=== PATIENT | female | born 1970 | race Caucasian/White ===

== ENCOUNTER 2017-10-05 10:39 | Day surgery (SDC) | payer OTHER ==
[2017-09-30 13:16] VITALS: BP 127/77
[~2017-10-05] VITALS: Ht 165.1 cm; Wt 75.9 kg
[~2017-10-05 10:39] MED LIST: ASPI1TAB31 PO; CETI10TA24 PO; CHOL200074 PO; LISI-170 PO; MULT-717 PO; MV-M1TAB29 PO; OMEG-14 PO
[2017-10-05] MEDS ORDERED: LACTATED RINGERS 1,000 ML IV SCH (12:00)
[2017-10-05 12:03] LABS: HCG UR SG 1.012 (1.003-1.030)
[2017-10-05] MEDS ORDERED: FENTANYL PF 100 MCG/2ML ONE ×2 (13:34→13:42)
[2017-10-05] MEDS ORDERED: PROPOFOL 10 MG/ML, 20ML ONE ×2 (13:35→13:42)
[2017-10-05] MEDS ORDERED: MIDAZOLAM 1 MG/ML, 2ML ONE ×4 (13:35→16:49)
[2017-10-05] MEDS ORDERED: LIDOCAINE-MPF 2% ,5ML ONE (13:35)
[2017-10-05] MEDS ORDERED: HYDROmorphone 2 MG/ML, 1ML ONE (13:42)
[2017-10-05] MEDS ORDERED: ONDANSETRON 2MG/ML, 2ML ONE ×3 (13:42→13:53)
[2017-10-05] MEDS ORDERED: DEXAMETHASONE 4 MG/ML, 1ML ONE ×4 (13:42→15:31)
[2017-10-05] MEDS ORDERED: KETAMINE 10 MG/ML, 20ML ONE (13:42)
[2017-10-05] MEDS ORDERED: KETOROLAC 30 MG/1 ML ONE ×2 (13:42→13:52)
[2017-10-05] MEDS ORDERED: HYDROmorphone 1 MG/ML, 1ML ONE (14:12)
[2017-10-05] MEDS ORDERED: THROMBIN 5,000 UNIT VIAL TP ONE (14:13)
[2017-10-05] MEDS ORDERED: ONDANSETRON 2MG/ML, 2ML IVPush PRN (14:30)
[2017-10-05] MEDS ORDERED: LORazepam 2 MG/ML, 1ML IVPush PRN (14:30)
[2017-10-05] MEDS ORDERED: LABETALOL 5MG/ML, 20ML IV PRN (14:30)
[2017-10-05] MEDS ORDERED: ALBUTEROL SULFATE 2.5 MG/3 ML NPPB PRN (14:30)
[2017-10-05] MEDS ORDERED: OXYcodone 5 MG/5 ML ORAL.SOL UDC PO PRN (14:30)
[2017-10-05] MEDS ORDERED: hydrALAzine 20 MG/ML, 1ML IV PRN (14:30)
[2017-10-05] MEDS ORDERED: FENTANYL PF 100 MCG/2ML IV PRN (14:30)
[2017-10-05] MEDS ORDERED: HYDROmorphone 1 MG/ML, 1ML IV PRN (14:30)
[2017-10-05] MEDS ORDERED: PROMETHAZINE 25 MG/ML, 1ML IV PRN (14:30)
[2017-10-05] MEDS ORDERED: ACETAMINOPHEN 325 MG TABLET PO PRN (14:30)
[2017-10-05] MEDS ORDERED: MEPERIDINE/PF 25MG/0.5ML IVPush PRN (14:30)
[2017-10-05] MEDS ORDERED: OXYcodone 5 MG/5 ML ORAL.SOL UDC ONE (14:44)
[2017-10-05] MEDS ORDERED: ACETAMINOPHEN 650 MG/20.3 ML UDC ONE (14:44)
== END 2017-10-05 17:05 | disposition home or self-care (01) ==
LOC: OUT 10:39
PROVIDERS: ATTEND Specialist
DX: N87.1 Moderate cervical dysplasia (principal); N84.0 Polyp of corpus uteri; I10 Essential (primary) hypertension; F41.9 Anxiety disorder, unspecified; Z79.899 Other long term (current) drug therapy; F32.9 Major depressive disorder, single episode, unspecified; Z85.71 Personal history of Hodgkin lymphoma; Z72.89 Other problems related to lifestyle; F17.210 Nicotine dependence, cigarettes, uncomplicated; Z82.49 Family history of ischemic heart disease and other diseases of the circulatory system
CPT/HCPCS: 57522; 81025; 88305; J1100; J1170; J1885; J2250; J2405; J2704; J3010; J3490; J7120

== ENCOUNTER → 2017-11-19 | Outpatient (CLI) | payer OTHER ==
[~2017-11-19] MED LIST changes: +ALBU8.5H8 INH; +MULT-224 PO
[2017-11-19 08:35] LABS: BASOPHILS # (AUTO) 0.07 x10^3/uL (0-0.1); BASOPHILS % (AUTO) 1 % (0-1); EOSINOPHILS # (AUTO) 0.37 x10^3/uL (0-0.4); EOSINOPHILS % (AUTO) 3 % (1-7); LYMPHOCYTES # (AUTO) 2.11 x10^3/uL (1-3.4); LYMPHOCYTES % (AUTO) 18 % (22-44); MD NO; MEAN CORPUSCULAR HEMOGLOBIN 29.7 pg (27.0-34.8); MEAN CORPUSCULAR HGB CONC 33.4 g/dL (32.4-35.8); MEAN CORPUSCULAR VOLUME 89.1 fL (80-100); MEAN PLATELET VOLUME 8.4 fL (7.4-10.4); MONOCYTES # (AUTO) 0.94 x10^3/uL (0.2-0.8); MONOCYTES % (AUTO) 8 % (2-9); NEUTROPHILS # (AUTO) 8.11 x10^3/uL (1.8-6.8); NEUTROPHILS % (AUTO) 70 % (42-75); PLATELET COUNT 383 x10^3/uL (130-400); RED BLOOD COUNT 4.86 x10^6/uL (3.82-5.3); RED CELL DISTRIBUTION WIDTH 14.4 % (9.6-15.2)
[2017-11-19 08:41] LABS: INTERNATIONAL NORMALIZED RATIO 0.92 (0.93-1.1); PROTHROMBIN TIME 9.6 Seconds (9.6-11.5)
[2017-11-19 08:46] LABS: ALBUMIN 3.9 g/dL (3.4-5.0); ANION GAP 9 mmol/L (5-15); CALCIUM 9.3 mg/dL (8.5-10.1); CHLORIDE 105 mmol/L (98-107)
[2017-11-19 08:51] LABS: ALANINE AMINOTRANSFERASE 40 U/L (12-78); ALKALINE PHOSPHATASE 96 U/L (45-117); BILIRUBIN,TOTAL 0.4 mg/dL (0.2-1.0); CREATININE 0.69 mg/dL (0.55-1.02); TOTAL PROTEIN 7.6 g/dL (6.4-8.2)
== END | disposition home or self-care (01) ==
LOC: STAR 07:29
PROVIDERS: ATTEND Specialist
DX: N93.8 Other specified abnormal uterine and vaginal bleeding (principal); N87.9 Dysplasia of cervix uteri, unspecified
CPT/HCPCS: 36415; 80053; 84703; 85025; 85610; 85730

== ENCOUNTER 2017-11-23 06:59 | Day surgery (SDC) | payer OTHER ==
[~2017-11-23] VITALS: Ht 165.1 cm; Wt 75.1 kg
[~2017-11-23 06:59] MED LIST changes: +BUPIVACAINE/PF 0.25% ONE; +EPINEPHRINE 1 MG/ML, 1ML ONE; +HEPARIN 1,000 UNITS/ML, 10ML ONE; +INDOCYANINE GREEN 25 MG VIAL ONE
[2017-11-23 07:41] VITALS: BP 157/71
[2017-11-23] MEDS ORDERED: LACTATED RINGERS 1,000 ML IV SCH (07:47)
[2017-11-23 08:17] LABS: HCG UR SG 1.024 (1.003-1.030)
[2017-11-23] MEDS ORDERED: FENTANYL PF 250 MCG/5ML ONE (08:42)
[2017-11-23] MEDS ORDERED: MIDAZOLAM 1 MG/ML, 2ML ONE (08:42)
[2017-11-23] MEDS ORDERED: PNEUMOCOCCAL 23 VACCINE IM-VACC ONE (09:00)
[2017-11-23] MEDS ORDERED: KETOROLAC 30 MG/1 ML ONE (09:30)
[2017-11-23] MEDS ORDERED: NEOSTIGMINE 1 MG/ML, 10ML ONE (10:34)
[2017-11-23] MEDS ORDERED: ROCURONIUM 10 MG/ML,10ML ONE (10:34)
[2017-11-23] MEDS ORDERED: SUCCINYLCHOLINE 20 MG/ML, 10ML ONE (10:34)
[2017-11-23] MEDS ORDERED: CEFAZOLIN 1,000 MG ONE (10:34)
[2017-11-23] MEDS ORDERED: PROPOFOL 10 MG/ML, 20ML ONE (10:34)
[2017-11-23] MEDS ORDERED: GLYCOPYRROLATE 0.2MG/1ML, 5ML ONE (10:34)
[2017-11-23] MEDS ORDERED: ONDANSETRON 2MG/ML, 2ML ONE (10:34)
[2017-11-23] MEDS ORDERED: DEXAMETHASONE 4 MG/ML, 1ML ONE (10:34)
[2017-11-23] MEDS ORDERED: ALBUTEROL SULFATE 2.5 MG/3 ML ONE (11:15)
[2017-11-23] MEDS ORDERED: ACETAMINOPHEN 650 MG/20.3 ML UDC ONE (11:27)
[2017-11-23] MEDS ORDERED: OXYcodone 5 MG/5 ML ORAL.SOL UDC ONE (11:27)
[2017-11-23] MEDS ORDERED: FENTANYL PF 100 MCG/2ML ONE (11:27)
[2017-11-23] MEDS ORDERED: EPHEDRINE 50 MG/ML, 1ML IVPush PRN (11:30)
[2017-11-23] MEDS ORDERED: MIDAZOLAM 1 MG/ML, 2ML IV PRN (11:30)
[2017-11-23] MEDS ORDERED: ALBUTEROL/IPRATROPIUM 2.5MG/0.5MG, 3 ML NPPB PRN (11:30)
[2017-11-23] MEDS ORDERED: OXYcodone 5 MG/5 ML ORAL.SOL UDC PO PRN (11:30)
[2017-11-23] MEDS ORDERED: LABETALOL 5MG/ML, 20ML IV PRN (11:30)
[2017-11-23] MEDS ORDERED: MEPERIDINE/PF 25MG/0.5ML IVPush PRN (11:30)
[2017-11-23] MEDS ORDERED: HYDROcodone/APAP 7.5-325MG/15ML UDC PO PRN (11:30)
[2017-11-23] MEDS ORDERED: ALBUTEROL SULFATE 2.5 MG/3 ML NPPB PRN (11:30)
[2017-11-23] MEDS ORDERED: HYDROmorphone 1 MG/ML, 1ML IV PRN (11:30)
[2017-11-23] MEDS ORDERED: ACETAMINOPHEN 325 MG TABLET PO PRN (11:30)
[2017-11-23] MEDS ORDERED: PROMETHAZINE 25 MG/ML, 1ML IV PRN (11:30)
[2017-11-23] MEDS ORDERED: hydrALAzine 20 MG/ML, 1ML IV PRN (11:30)
[2017-11-23] MEDS ORDERED: METOPROLOL 1 MG/ML, 5ML IV PRN (11:30)
[2017-11-23] MEDS ORDERED: ONDANSETRON 2MG/ML, 2ML IVPush PRN (11:30)
[2017-11-23] MEDS ORDERED: DIAZEPAM 5 MG/ML, 2ML IVPush PRN (11:30)
[2017-11-23] MEDS: FENTANYL PF 100 MCG/2ML IV PRN ×2 (11:32→11:40)
== END 2017-11-23 15:20 | disposition home or self-care (01) ==
LOC: OUT 06:59
PROVIDERS: ATTEND Specialist
DX: R87.613 High grade squamous intraepithelial lesion on cytologic smear of cervix (HGSIL) (principal); D25.9 Leiomyoma of uterus, unspecified; N80.0 Endometriosis of uterus; N83.8 Other noninflammatory disorders of ovary, fallopian tube and broad ligament; I10 Essential (primary) hypertension; J45.909 Unspecified asthma, uncomplicated; Z85.71 Personal history of Hodgkin lymphoma; F41.9 Anxiety disorder, unspecified; F32.9 Major depressive disorder, single episode, unspecified; F17.200 Nicotine dependence, unspecified, uncomplicated; Z72.89 Other problems related to lifestyle
CPT/HCPCS: 36415; 58552; 81025; 86850; 86900; 86923; 88307; 94640; J0171; J0330; J0690; J1100; J1644; J1885; J2250; J2405; J2704; J2710; J3010; J3490; J7120; S2900

== ENCOUNTER → 2018-08-31 | Outpatient (CLI) | payer OTHER ==
[~2018-08-31] MED LIST changes: -BUPIVACAINE/PF 0.25% ONE; -EPINEPHRINE 1 MG/ML, 1ML ONE; -HEPARIN 1,000 UNITS/ML, 10ML ONE; -INDOCYANINE GREEN 25 MG VIAL ONE
== END | disposition home or self-care (01) ==
LOC: CFH 08:44
PROVIDERS: ATTEND Internal Medicine Cardiovascular Disease
DX: I05.0 Rheumatic mitral stenosis (principal); I35.1 Nonrheumatic aortic (valve) insufficiency; F17.210 Nicotine dependence, cigarettes, uncomplicated; I10 Essential (primary) hypertension; C81.90 Hodgkin lymphoma, unspecified, unspecified site; E78.5 Hyperlipidemia, unspecified
CPT/HCPCS: 93306

== ENCOUNTER 2018-10-29 08:52 | Day surgery (SDC) | payer MEDICAID ==
[~2018-10-29] VITALS: Ht 165.1 cm; Wt 82.0 kg
[2018-10-29] MEDS ORDERED: SODIUM CHLORIDE 0.9% 1,000 ML IV ONE (09:30)
[2018-10-29 09:33] VITALS: BP 129/69
[2018-10-29] MEDS ORDERED: LOSA50TA7 PO (09:42)
[2018-10-29] MEDS ORDERED: PLEASE ENTER HEIGHT AND WEIGHT MC SCH (10:00)
[2018-10-29] MEDS ORDERED: PROPOFOL 10 MG/ML, 20ML ONE (14:51)
== END 2018-10-29 13:47 | disposition home or self-care (01) ==
LOC: CACL 08:52
PROVIDERS: ATTEND Internal Medicine Cardiovascular Disease
DX: I05.2 Rheumatic mitral stenosis with insufficiency (principal); I36.1 Nonrheumatic tricuspid (valve) insufficiency; E78.5 Hyperlipidemia, unspecified; Z87.891 Personal history of nicotine dependence
CPT/HCPCS: 93312; 93321; 93325; J2704

== ENCOUNTER 2018-11-19 07:36 | Day surgery (SDC) | payer MEDICAID ==
[~2018-11-19] VITALS: Ht 165.1 cm; Wt 75.0 kg
[~2018-11-19 07:36] MED LIST changes: +LOSA50TA14 PO; -MULT-224 PO; +MULT-642 PO
[2018-11-19] MEDS ORDERED: SODIUM CHLORIDE 0.9% 1,000 ML IV SCH (08:12)
[2018-11-19 08:17] VITALS: BP 140/86
[2018-11-19] MEDS ORDERED: PLEASE ENTER HEIGHT AND WEIGHT MC SCH (08:30)
[2018-11-19] MEDS ORDERED: LISI-170 PO (08:32)
[2018-11-19] MEDS ORDERED: VARE1TAB21 PO (08:32)
[2018-11-19] MEDS ORDERED: MULT-709 PO (08:32)
[2018-11-19] MEDS ORDERED: FENTANYL PF 100 MCG/2ML ONE (09:17)
[2018-11-19] MEDS ORDERED: HEPARIN 1,000 UNITS/ML, 10ML ONE (09:17)
[2018-11-19] MEDS ORDERED: NITROGLYCERIN 5 MG/ML, 10ML ONE (09:17)
[2018-11-19] MEDS ORDERED: MIDAZOLAM 1 MG/ML, 2ML ONE (09:17)
[2018-11-19] MEDS ORDERED: VERAPAMIL 2.5 MG/ML, 2ML ONE (09:17)
[2018-11-19] MEDS ORDERED: LIDOCAINE-MPF 1%, 5ML ONE (09:18)
== END 2018-11-19 12:30 | disposition home or self-care (01) ==
LOC: CACL 07:36
PROVIDERS: ATTEND Internal Medicine Cardiovascular Disease
DX: I25.10 Atherosclerotic heart disease of native coronary artery without angina pectoris (principal); I27.20 Pulmonary hypertension, unspecified; I10 Essential (primary) hypertension; I34.2 Nonrheumatic mitral (valve) stenosis; Z72.0 Tobacco use; Z90.710 Acquired absence of both cervix and uterus
CPT/HCPCS: 93460; 99156; 99157; C1769; C1894; J1644; J2250; J3010; J7030; Q9967

== ENCOUNTER 2019-01-26 04:15 | Inpatient (IN) | payer MEDICAID ==
[2019-01-25 13:42] LABS: CULTURE INDICATED? NO; MICROSCOPIC NOT IND
[2019-01-25 13:47] LABS: BASOPHILS # (AUTO) 0.05 x10^3/uL (0-0.1); BASOPHILS % (AUTO) 1 % (0-1); EOSINOPHILS # (AUTO) 0.23 x10^3/uL (0-0.4); EOSINOPHILS % (AUTO) 3 % (1-7); LYMPHOCYTES # (AUTO) 1.34 x10^3/uL (1-3.4); LYMPHOCYTES % (AUTO) 18 % (22-44); MD NO; MEAN CORPUSCULAR HEMOGLOBIN 31.1 pg (27.0-34.8); MEAN CORPUSCULAR HGB CONC 34.3 g/dL (32.4-35.8); MEAN CORPUSCULAR VOLUME 90.7 fL (80-100); MEAN PLATELET VOLUME 8.2 fL (7.4-10.4); MONOCYTES # (AUTO) 0.97 x10^3/uL (0.2-0.8); MONOCYTES % (AUTO) 13 % (2-9); NEUTROPHILS # (AUTO) 4.93 x10^3/uL (1.8-6.8); NEUTROPHILS % (AUTO) 66 % (42-75); PLATELET COUNT 380 x10^3/uL (130-400); RED BLOOD COUNT 4.72 x10^6/uL (3.82-5.3); RED CELL DISTRIBUTION WIDTH 14.6 % (9.6-15.2)
[2019-01-25 13:53] LABS: INTERNATIONAL NORMALIZED RATIO 0.93 (0.93-1.1); PROTHROMBIN TIME 9.8 Seconds (9.6-11.5)
[2019-01-25 13:55] LABS: ALANINE AMINOTRANSFERASE 37 U/L (12-78); ALBUMIN 3.9 g/dL (3.4-5.0); ANION GAP 7 mmol/L (5-15); CALCIUM 9.2 mg/dL (8.5-10.1); CHLORIDE 104 mmol/L (98-107); CREATININE 0.72 mg/dL (0.55-1.02)
[2019-01-25 13:58] LABS: ALKALINE PHOSPHATASE 97 U/L (45-117); BILIRUBIN,TOTAL 0.4 mg/dL (0.2-1.0); TOTAL PROTEIN 7.5 g/dL (6.4-8.2)
[~2019-01-26] VITALS: Ht 167.6 cm; Wt 81.3 kg
[~2019-01-26 04:15] MED LIST changes: +AMLO-150 PO; +DIPH25TA PO; +DULO20CA45 PO; +MULT-709 PO; +VARE1TAB21 PO
[2019-01-26 04:50] VITALS: BP_SYST 120; BP_SYST 128; BP_DIAS 72; BP_DIAS 78
[2019-01-26] MEDS ORDERED: INSULIN LISPRO 100 UNITS/ML, PEN SQ-INSULIN SCH (05:00)
[2019-01-26] MEDS ORDERED: ALBUMIN HUMAN 5% 500 ML IV PRN (05:00)
[2019-01-26] MEDS ORDERED: CHLORHEXIDINE 15 ML UDC MM SCH (05:00)
[2019-01-26] MEDS ORDERED: MIDAZOLAM 10MG/2 ML ONE (06:48)
[2019-01-26] MEDS ORDERED: PROPOFOL 10 MG/ML, 20ML ONE (06:49)
[2019-01-26] MEDS ORDERED: FENTANYL PF 250 MCG/5ML ONE ×4 (06:49)
[2019-01-26] MEDS ORDERED: AMINOCAPROIC ACID 250 MG/ML, 20ML ONE (06:49)
[2019-01-26] MEDS ORDERED: ROCURONIUM 10MG/ML,5ML ONE (06:50)
[2019-01-26] MEDS ORDERED: EPINEPHRINE 1 MG/ML, 1ML ONE (06:50)
[2019-01-26] MEDS ORDERED: PHENYLEPHRINE 10 MG/ML ONE (06:50)
[2019-01-26] MEDS ORDERED: CALCIUM CHLORIDE 10%, 10ML SYR ONE (06:50)
[2019-01-26] MEDS ORDERED: EPINEPHRINE 2 MG in SODIUM CHLORIDE 0.9% 248 ML IV SCH (07:30)
[2019-01-26] MEDS ORDERED: MANNITOL PMX 20% 500 ML IVPB PRN (07:30)
[2019-01-26] MEDS ORDERED: REGULAR INSULIN 62.5 UNITS in SODIUM CHLORIDE 0.9% 249.375 ML IV PRN ×2 (07:30→11:48)
[2019-01-26] MEDS ORDERED: VANCOMYCIN 1,200 MG in SODIUM CHLORIDE 0.9% 250 ML IV PRN (07:30)
[2019-01-26] MEDS ORDERED: POTASSIUM CHLORIDE 80 MEQ, SODIUM BICARBONATE 8.4% 10 MEQ, MAGNESIUM SULFATE 0.5 GM, LI... IV PRN (07:30)
[2019-01-26] MEDS ORDERED: DEXMEDETOMIDINE 200 MCG in SODIUM CHLORIDE 0.9% 48 ML IV SCH (07:30)
[2019-01-26] MEDS ORDERED: CEFUROXIME 1.5 GM in SODIUM CHLORIDE 0.9% 50 ML IVPB PRN (07:30)
[2019-01-26] MEDS ORDERED: PHENYLEPHRINE 10 MG in SODIUM CHLORIDE 0.9% 249 ML IV PRN ×2 (07:30→11:48)
[2019-01-26] MEDS ORDERED: VASOPRESSIN 20 UNIT/ML, 1ML ONE (08:42)
[2019-01-26] MEDS: DOCUSATE 100 MG CAPSULE PO SCH ×2 (09:00→21:00)
[2019-01-26] MEDS ORDERED: MUPIROCIN OINT 2%, 22GM TP SCH (09:00)
[2019-01-26] MEDS ORDERED: SODIUM CHLORIDE FLUSH 10ML SYR IVF SCH (09:00)
[2019-01-26] MEDS ORDERED: MAGNESIUM SULFATE PMX 2GM/50ML 50 ML ONE (10:58)
[2019-01-26] MEDS ORDERED: SODIUM BICARB 8.4%, 50ML SYRINGE ONE (11:41)
[2019-01-26] MEDS ORDERED: NITROGLYCERIN/D5W PMX 250 ML IV PRN (11:48)
[2019-01-26] MEDS ORDERED: SODIUM CHLORIDE 0.9% 1,000 ML IV PRN (11:48)
[2019-01-26] MEDS ORDERED: DOBUTAMINE 250 MG in SODIUM CHLORIDE 0.9% 230 ML IV PRN (11:48)
[2019-01-26] MEDS ORDERED: DEXTROSE 50%, 50ML SYRINGE IVPush PRN (12:00)
[2019-01-26] MEDS ORDERED: GLUCAGON 1 MG IM PRN (12:00)
[2019-01-26] MEDS ORDERED: DEXTROSE 4 GM TAB.CHEW PO PRN (12:00)
[2019-01-26] MEDS ORDERED: INSULIN REGULAR 100 UNITS/ML, 3ML VIAL IVPush PRN (12:00)
[2019-01-26] MEDS ORDERED: ACETAMINOPHEN 650 MG SUPP PR PRN (12:00)
[2019-01-26] MEDS ORDERED: BISACODYL 5 MG EC TABLET PO PRN (12:00)
[2019-01-26] MEDS ORDERED: PROCHLORPERAZINE 5 MG/ML, 2ML IVPush PRN (12:00)
[2019-01-26] MEDS ORDERED: LACTATED RINGERS 1,000 ML IV PRN (12:00)
[2019-01-26] MEDS ORDERED: SODIUM BICARB 8.4%, 50ML SYRINGE IV PRN (12:00)
[2019-01-26] MEDS ORDERED: BISACODYL 10 MG SUPP PR PRN (12:00)
[2019-01-26] MEDS ORDERED: ACETAMINOPHEN 325 MG TABLET PO PRN (12:00)
[2019-01-26] MEDS ORDERED: EPINEPHRINE 2 MG in SODIUM CHLORIDE 0.9% 248 ML IV PRN (12:00)
[2019-01-26] MEDS ORDERED: methylPREDNISolone SOD SUCC 125 MG/2 ML ONE (12:04)
[2019-01-26] MEDS ORDERED: SODIUM BICARBONATE 1 MEQ/ML, 50ML VIAL ONE (12:04)
[2019-01-26] MEDS ORDERED: LIDOCAINE 2% 100MG/5ML SYRINGE ONE (12:04)
[2019-01-26] MEDS ORDERED: ALBUMIN HUMAN 25% 50 ML ONE (12:04)
[2019-01-26] MEDS ORDERED: HEPARIN 1,000 UNITS/ML, 30ML ONE (12:04)
[2019-01-26 12:16] LABS: GLUCOSE BY BLOOD GAS ANALYZER 187 mg/dL (70-110); HEMOGLOBIN BY BLOOD GAS ANALYZ 11.2 g/dL (14.0-18.0); POTASSIUM BY BLOOD GAS ANALYZR 3.6 mmol/L (3.6-5.5)
[2019-01-26 12:30] LABS: INTERNATIONAL NORMALIZED RATIO 1.33 (0.93-1.1); PROTHROMBIN TIME 13.8 Seconds (9.6-11.5)
[2019-01-26] MEDS: INSULIN LISPRO 100 UNITS/ML, PEN SQ-INSULIN SCH ×2 (13:39→21:00)
[2019-01-26] MEDS: KSCALE TO 4.5 IV SCH ×2 (13:57→18:51)
[2019-01-26] MEDS ORDERED: POTASSIUM CHLORIDE PMX 100 ML IV ONE (14:00)
[2019-01-26] MEDS: ALBUTEROL SULFATE 2.5 MG/3 ML INLINE PRN (14:00)
[2019-01-26] MEDS: VASOPRESSIN 50 UNIT in SODIUM CHLORIDE 0.9% 247.5 ML IV PRN ×2 (14:27→18:38)
[2019-01-26] MEDS: DEXMEDETOMIDINE 200 MCG in SODIUM CHLORIDE 0.9% 48 ML IV PRN ×2 (14:35→20:16)
[2019-01-26] MEDS: MAGNESIUM SULFATE 1 GM in SODIUM CHLORIDE 0.9% 50 ML IVPB SCH (17:14)
[2019-01-26] MEDS ORDERED: MORPHINE SULFATE 4 MG/ML, 1ML ONE (18:44)
[2019-01-26] MEDS: morphine SULFATE 10 MG/ML, 1ML IVPush PRN (18:46)
[2019-01-26] MEDS: FENTANYL PF 100 MCG/2ML IVPush PRN ×2 (19:58→23:57)
[2019-01-26] MEDS: ONDANSETRON 2MG/ML, 2ML IVPush PRN ×2 (19:58→20:02)
[2019-01-26] MEDS: CEFUROXIME 1.5 GM in SODIUM CHLORIDE 0.9% 50 ML IVPB SCH (19:59)
[2019-01-26] MEDS: MUPIROCIN OINT 2%, 22GM NAS SCH (20:01)
[2019-01-26] MEDS: SODIUM CHLORIDE FLUSH 10ML SYR IVF SCH (20:01)
[2019-01-26] MEDS ORDERED: MIDAZOLAM 1 MG/ML, 2ML ONE (21:39)
[2019-01-26] MEDS: VANCOMYCIN 1,200 MG in SODIUM CHLORIDE 0.9% 250 ML IVPB SCH (21:40)
[2019-01-26] MEDS: MIDAZOLAM 1 MG/ML, 5ML IVPush PRN ×2 (21:40→23:57)
[2019-01-27] MEDS ORDERED: CALCIUM CHLORIDE 10%, 10ML SYR ONE (00:57)
[2019-01-27] MEDS ORDERED: ALBUTEROL SULFATE 2.5MG/0.5ML NPPB PRN (01:00)
[2019-01-27] MEDS ORDERED: SODIUM POLYSTYRENE SULFONATE ORAL SUSP PO ONE (01:00)
[2019-01-27] MEDS ORDERED: CALCIUM CHLORIDE 13.6 MEQ in SODIUM CHLORIDE 0.9% 100 ML IV ONE (01:00)
[2019-01-27] MEDS: ALBUTEROL SULFATE 2.5 MG/3 ML INLINE PRN (01:17)
[2019-01-27] MEDS ORDERED: FUROSEMIDE 40 MG/4 ML IV ONE (01:30)
[2019-01-27] MEDS ORDERED: ALBUMIN HUMAN 5%, 25G/500ML IP PRN (01:30)
[2019-01-27] MEDS ORDERED: PROPOFOL 100 ML IV PRN (01:30)
[2019-01-27] MEDS ORDERED: SODIUM CHLORIDE 0.9% 1,000 ML IV SCH (01:30)
[2019-01-27] MEDS ORDERED: SODIUM CHLORIDE 0.9% 1,000 ML IV PRN (02:00)
[2019-01-27] MEDS: INSULIN LISPRO 100 UNITS/ML, PEN SQ-INSULIN SCH ×4 (05:37→19:52)
[2019-01-27 05:49] LABS: MEAN CORPUSCULAR HEMOGLOBIN 30.5 pg (27.0-34.8); MEAN CORPUSCULAR HGB CONC 33.5 g/dL (32.4-35.8); MEAN PLATELET VOLUME 8.7 fL (7.4-10.4); PLATELET COUNT 190 x10^3/uL (130-400); RED BLOOD COUNT 3.72 x10^6/uL (3.82-5.3); RED CELL DISTRIBUTION WIDTH 14.7 % (9.6-15.2)
[2019-01-27 05:57] LABS: ALBUMIN 3.3 g/dL (3.4-5.0); ANION GAP 5 mmol/L (5-15); CALCIUM 8.8 mg/dL (8.5-10.1); CHLORIDE 111 mmol/L (98-107); CREATININE 0.73 mg/dL (0.55-1.02)
[2019-01-27] MEDS: KSCALE TO 4.5 IV SCH ×2 (06:00)
[2019-01-27 06:01] LABS: INTERNATIONAL NORMALIZED RATIO 1.01 (0.93-1.1); PROTHROMBIN TIME 10.6 Seconds (9.6-11.5)
[2019-01-27 06:22] LABS: MD YES
[2019-01-27 06:23] LABS: <RBC MORPHOLOGY> NORMAL; BAND#(MANUAL) 1.09 x10^3/uL; BANDS%(MANUAL) 6 % (0-7); LYMPH#(MANUAL) 0.55 x10^3/uL (1-3.4); LYMPHS% (MANUAL) 3 % (22-44); MONOS#(MANUAL) 1.09 x10^3/uL (0.3-2.7); MONOS% (MANUAL) 6 % (2-9); SEG#(MANUAL) 15.47 x10^3/uL (1.8-6.8); SEGS% (MANUAL) 85 % (42-75)
[2019-01-27 06:24] LABS: <PLATELET ESTIMATE> ADEQUATE; <PLT MORPHOLOGY> NORMAL PLT MORPH
[2019-01-27] MEDS: CEFUROXIME 1.5 GM in SODIUM CHLORIDE 0.9% 50 ML IVPB SCH (08:21)
[2019-01-27] MEDS: VANCOMYCIN 1,200 MG in SODIUM CHLORIDE 0.9% 250 ML IVPB SCH (08:21)
[2019-01-27] MEDS: MUPIROCIN OINT 2%, 22GM NAS SCH ×2 (09:00→20:23)
[2019-01-27] MEDS: ASPIRIN 81 MG TABLET EC PO SCH (09:00)
[2019-01-27] MEDS: WARFARIN BIOPROSTHETIC VALVE PROTOCOL 2-3 XX SCH (09:00)
[2019-01-27] MEDS: DOCUSATE 100 MG CAPSULE PO SCH ×2 (09:00→20:23)
[2019-01-27] MEDS: SODIUM CHLORIDE FLUSH 10ML SYR IVF SCH ×2 (09:00→20:22)
[2019-01-27] MEDS: HYDROcodone/APAP 10/325 MG TABLET PO PRN ×4 (09:53→22:56)
[2019-01-27] MEDS: morphine SULFATE 10 MG/ML, 1ML IVPush PRN (09:53)
[2019-01-27] MEDS ORDERED: WARFARIN 5 MG TABLET PO-COUM ONE (18:00)
[2019-01-27] MEDS: MAGNESIUM SULFATE 1 GM in SODIUM CHLORIDE 0.9% 50 ML IVPB SCH (18:00)
[2019-01-27 19:30] VITALS: BP 112/68
[2019-01-27] MEDS: CHLORHEXIDINE 15 ML UDC MM SCH (20:22)
[2019-01-27] MEDS: OXYcodone IR 5MG TABLET PO PRN (20:23)
[2019-01-28 00:36] VITALS: BP 126/77
[2019-01-28] MEDS: OXYcodone IR 5MG TABLET PO PRN (02:11)
[2019-01-28] MEDS: HYDROcodone/APAP 10/325 MG TABLET PO PRN ×2 (04:24→13:47)
[2019-01-28 05:32] LABS: MEAN CORPUSCULAR HEMOGLOBIN 30.7 pg (27.0-34.8); MEAN CORPUSCULAR HGB CONC 33.5 g/dL (32.4-35.8); MEAN CORPUSCULAR VOLUME 91.5 fL (80-100); MEAN PLATELET VOLUME 8.7 fL (7.4-10.4); PLATELET COUNT 162 x10^3/uL (130-400); RED CELL DISTRIBUTION WIDTH 14.3 % (9.6-15.2)
[2019-01-28 05:40] LABS: INTERNATIONAL NORMALIZED RATIO 0.99 (0.93-1.1); PROTHROMBIN TIME 10.4 Seconds (9.6-11.5)
[2019-01-28 05:47] LABS: ANION GAP 6 mmol/L (5-15); CALCIUM 8.3 mg/dL (8.5-10.1); CHLORIDE 103 mmol/L (98-107)
[2019-01-28 05:48] LABS: CREATININE 0.56 mg/dL (0.55-1.02)
[2019-01-28] MEDS ORDERED: MAGNESIUM HYDROXIDE 8%, 30ML UDC PO PRN (06:00)
[2019-01-28 06:24] LABS: BASOPHILS # (AUTO) 0.05 x10^3/uL (0-0.1); BASOPHILS % (AUTO) 0 % (0-1); EOSINOPHILS # (AUTO) 0.15 x10^3/uL (0-0.4); EOSINOPHILS % (AUTO) 1 % (1-7); LYMPHOCYTES # (AUTO) 1.08 x10^3/uL (1-3.4); LYMPHOCYTES % (AUTO) 6 % (22-44); MD SCAN; MONOCYTES # (AUTO) 1.29 x10^3/uL (0.2-0.8); MONOCYTES % (AUTO) 7 % (2-9); NEUTROPHILS # (AUTO) 15.95 x10^3/uL (1.8-6.8); NEUTROPHILS % (AUTO) 86 % (42-75)
[2019-01-28] MEDS: INSULIN LISPRO 100 UNITS/ML, PEN SQ-INSULIN SCH ×4 (07:00→20:42)
[2019-01-28] MEDS: WARFARIN BIOPROSTHETIC VALVE PROTOCOL 2-3 XX SCH (07:06)
[2019-01-28 07:18] VITALS: BP 116/78
[2019-01-28] MEDS ORDERED: LORazepam 1MG TABLET PO PRN (07:30)
[2019-01-28] MEDS: DULOXETINE 20 MG CAPSULE.DR PO SCH ×2 (08:34→20:37)
[2019-01-28] MEDS: MUPIROCIN OINT 2%, 22GM NAS SCH ×2 (08:34→20:36)
[2019-01-28] MEDS: DOCUSATE 100 MG CAPSULE PO SCH ×2 (08:34→20:36)
[2019-01-28] MEDS: ASPIRIN 81 MG TABLET EC PO SCH (08:34)
[2019-01-28] MEDS: KETOROLAC 30 MG/1 ML IM SCH ×2 (08:34→16:50)
[2019-01-28] MEDS: CHLORHEXIDINE 15 ML UDC MM SCH ×2 (08:34→20:36)
[2019-01-28] MEDS: POTASSIUM CHLORIDE 20 MEQ TAB.ER.PRT PO SCH (08:35)
[2019-01-28] MEDS: SODIUM CHLORIDE FLUSH 10ML SYR IVF SCH ×3 (08:37→20:36)
[2019-01-28] MEDS: FUROSEMIDE 20 MG/2 ML IV SCH ×2 (11:19→15:35)
[2019-01-28 11:30] VITALS: BP 96/57
[2019-01-28 13:44] VITALS: BP 129/71
[2019-01-28] MEDS: MAGNESIUM SULFATE 1 GM in SODIUM CHLORIDE 0.9% 50 ML IVPB SCH (16:51)
[2019-01-28] MEDS ORDERED: WARFARIN 5 MG TABLET PO-COUM ONE (18:00)
[2019-01-28 18:59] VITALS: BP 99/62
[2019-01-28 19:41] VITALS: BP 117/74
[2019-01-29] VITALS (8 sets, daily range): BP systolic 114–139; BP diastolic 63–78
[2019-01-29] MEDS: KETOROLAC 30 MG/1 ML IM SCH ×2 (00:21→08:00)
[2019-01-29] MEDS ORDERED: KETOROLAC 30 MG/1 ML IM ONE (02:00)
[2019-01-29 05:21] LABS: BASOPHILS # (AUTO) 0.04 x10^3/uL (0-0.1); BASOPHILS % (AUTO) 0 % (0-1); EOSINOPHILS # (AUTO) 0.24 x10^3/uL (0-0.4); EOSINOPHILS % (AUTO) 2 % (1-7); LYMPHOCYTES % (AUTO) 11 % (22-44); MD NO; MEAN CORPUSCULAR HEMOGLOBIN 31.6 pg (27.0-34.8); MEAN CORPUSCULAR HGB CONC 34.4 g/dL (32.4-35.8); MEAN PLATELET VOLUME 9.1 fL (7.4-10.4); MONOCYTES # (AUTO) 1.08 x10^3/uL (0.2-0.8); MONOCYTES % (AUTO) 8 % (2-9); NEUTROPHILS % (AUTO) 79 % (42-75); PLATELET COUNT 163 x10^3/uL (130-400); RED BLOOD COUNT 3.24 x10^6/uL (3.82-5.3)
[2019-01-29 05:28] LABS: ANION GAP 6 mmol/L (5-15); CALCIUM 8.3 mg/dL (8.5-10.1); CHLORIDE 102 mmol/L (98-107); CREATININE 0.53 mg/dL (0.55-1.02)
[2019-01-29] MEDS: INSULIN LISPRO 100 UNITS/ML, PEN SQ-INSULIN SCH ×3 (07:00→16:00)
[2019-01-29] MEDS: WARFARIN BIOPROSTHETIC VALVE PROTOCOL 2-3 XX SCH (08:12)
[2019-01-29] MEDS: MUPIROCIN OINT 2%, 22GM NAS SCH ×2 (09:00→21:05)
[2019-01-29] MEDS: CHLORHEXIDINE 15 ML UDC MM SCH (09:26)
[2019-01-29] MEDS: ASPIRIN 81 MG TABLET EC PO SCH (09:27)
[2019-01-29] MEDS: DULOXETINE 20 MG CAPSULE.DR PO SCH ×2 (09:28→21:01)
[2019-01-29] MEDS: DOCUSATE 100 MG CAPSULE PO SCH ×2 (09:28→21:00)
[2019-01-29] MEDS: POTASSIUM CHLORIDE 20 MEQ TAB.ER.PRT PO SCH (09:28)
[2019-01-29] MEDS: SODIUM CHLORIDE FLUSH 10ML SYR IVF SCH ×4 (09:28→21:00)
[2019-01-29] MEDS: FUROSEMIDE 20 MG/2 ML IV SCH ×2 (12:06→22:08)
[2019-01-29] MEDS: KETOROLAC 30 MG/1 ML IV SCH ×2 (13:23→21:02)
[2019-01-29 13:44] LABS: INTERNATIONAL NORMALIZED RATIO 1.29 (0.93-1.1); PROTHROMBIN TIME 13.4 Seconds (9.6-11.5)
[2019-01-29] MEDS ORDERED: WARFARIN 5 MG TABLET PO-COUM ONE (18:00)
[2019-01-29] MEDS: OXYcodone IR 5MG TABLET PO PRN (18:22)
[2019-01-30 01:07] VITALS: BP 143/79
[2019-01-30 03:05] VITALS: BP 146/83
[2019-01-30] MEDS: KETOROLAC 30 MG/1 ML IV SCH ×4 (03:06→20:37)
[2019-01-30 05:29] VITALS: BP 148/82
[2019-01-30] MEDS: OXYcodone IR 5MG TABLET PO PRN ×3 (05:31→20:38)
[2019-01-30 05:37] LABS: BASOPHILS # (AUTO) 0.05 x10^3/uL (0-0.1); BASOPHILS % (AUTO) 1 % (0-1); EOSINOPHILS # (AUTO) 0.34 x10^3/uL (0-0.4); EOSINOPHILS % (AUTO) 3 % (1-7); LYMPHOCYTES # (AUTO) 1.27 x10^3/uL (1-3.4); LYMPHOCYTES % (AUTO) 12 % (22-44); MD NO; MEAN CORPUSCULAR HEMOGLOBIN 31.6 pg (27.0-34.8); MEAN CORPUSCULAR HGB CONC 34.5 g/dL (32.4-35.8); MEAN CORPUSCULAR VOLUME 91.6 fL (80-100); MONOCYTES # (AUTO) 1.11 x10^3/uL (0.2-0.8); MONOCYTES % (AUTO) 11 % (2-9); NEUTROPHILS # (AUTO) 7.74 x10^3/uL (1.8-6.8); NEUTROPHILS % (AUTO) 74 % (42-75); PLATELET COUNT 219 x10^3/uL (130-400); RED BLOOD COUNT 3.14 x10^6/uL (3.82-5.3)
[2019-01-30 05:38] LABS: ANION GAP 4 mmol/L (5-15); CALCIUM 8.3 mg/dL (8.5-10.1); CHLORIDE 104 mmol/L (98-107); CREATININE 0.57 mg/dL (0.55-1.02); INTERNATIONAL NORMALIZED RATIO 1.67 (0.93-1.1); PROTHROMBIN TIME 17.2 Seconds (9.6-11.5)
[2019-01-30] MEDS: WARFARIN BIOPROSTHETIC VALVE PROTOCOL 2-3 XX SCH (07:21)
[2019-01-30 08:10] VITALS: BP 126/78
[2019-01-30] MEDS: DOCUSATE 100 MG CAPSULE PO SCH ×2 (08:41→20:38)
[2019-01-30] MEDS: DULOXETINE 20 MG CAPSULE.DR PO SCH ×2 (08:41→20:38)
[2019-01-30] MEDS: POTASSIUM CHLORIDE 20 MEQ TAB.ER.PRT PO SCH (08:41)
[2019-01-30] MEDS: FUROSEMIDE 20 MG/2 ML IV SCH ×2 (08:41→17:38)
[2019-01-30] MEDS: ASPIRIN 81 MG TABLET EC PO SCH (08:41)
[2019-01-30] MEDS: MUPIROCIN OINT 2%, 22GM NAS SCH ×2 (08:42→20:52)
[2019-01-30] MEDS: SODIUM CHLORIDE FLUSH 10ML SYR IVF SCH ×4 (08:43→20:41)
[2019-01-30] MEDS ORDERED: CEFAZOLIN PMX 1GM/50ML 50 ML IVPB ONE (10:30)
[2019-01-30 12:27] VITALS: BP 142/73
[2019-01-30] MEDS: NICOTINE 14MG/24 HR PATCH.TD24 TD SCH (13:23)
[2019-01-30] MEDS ORDERED: WARFARIN 5 MG TABLET PO-COUM ONE (18:00)
[2019-01-30 19:04] VITALS: BP 120/74
[2019-01-31] MEDS: HYDROcodone/APAP 5/325 TABLET PO PRN ×4 (00:12→23:10)
[2019-01-31 00:37] VITALS: BP 146/82
[2019-01-31] MEDS: KETOROLAC 30 MG/1 ML IV SCH ×4 (04:01→20:41)
[2019-01-31 05:03] LABS: INTERNATIONAL NORMALIZED RATIO 1.75 (0.93-1.1)
[2019-01-31 05:04] LABS: BASOPHILS # (AUTO) 0.13 x10^3/uL (0-0.1); BASOPHILS % (AUTO) 1 % (0-1); EOSINOPHILS # (AUTO) 0.38 x10^3/uL (0-0.4); EOSINOPHILS % (AUTO) 4 % (1-7); LYMPHOCYTES # (AUTO) 1.21 x10^3/uL (1-3.4); LYMPHOCYTES % (AUTO) 12 % (22-44); MD NO; MEAN CORPUSCULAR HEMOGLOBIN 31.5 pg (27.0-34.8); MEAN CORPUSCULAR HGB CONC 34.4 g/dL (32.4-35.8); MEAN CORPUSCULAR VOLUME 91.4 fL (80-100); MEAN PLATELET VOLUME 8.5 fL (7.4-10.4); MONOCYTES % (AUTO) 9 % (2-9); NEUTROPHILS # (AUTO) 7.29 x10^3/uL (1.8-6.8); NEUTROPHILS % (AUTO) 74 % (42-75); PLATELET COUNT 263 x10^3/uL (130-400); RED BLOOD COUNT 3.09 x10^6/uL (3.82-5.3); RED CELL DISTRIBUTION WIDTH 13.8 % (9.6-15.2)
[2019-01-31 05:08] LABS: ANION GAP 4 mmol/L (5-15); CALCIUM 8.4 mg/dL (8.5-10.1); CHLORIDE 102 mmol/L (98-107); CREATININE 0.46 mg/dL (0.55-1.02)
[2019-01-31 06:56] VITALS: BP 129/85
[2019-01-31] MEDS: SODIUM CHLORIDE FLUSH 10ML SYR IVF SCH ×5 (09:00→20:42)
[2019-01-31] MEDS: MUPIROCIN OINT 2%, 22GM NAS SCH (09:00)
[2019-01-31] MEDS: DOCUSATE 100 MG CAPSULE PO SCH ×2 (09:18→20:41)
[2019-01-31] MEDS: FUROSEMIDE 20 MG/2 ML IV SCH ×2 (09:18→17:56)
[2019-01-31] MEDS: DULOXETINE 20 MG CAPSULE.DR PO SCH ×2 (09:18→20:41)
[2019-01-31] MEDS: POTASSIUM CHLORIDE 20 MEQ TAB.ER.PRT PO SCH (09:18)
[2019-01-31] MEDS: ASPIRIN 81 MG TABLET EC PO SCH (10:34)
[2019-01-31 12:17] VITALS: BP 105/70
[2019-01-31] MEDS ORDERED: MIDAZOLAM 1 MG/ML, 5ML ONE (13:38)
[2019-01-31] MEDS ORDERED: LIDOCAINE 2%, 20ML ONE (13:38)
[2019-01-31] MEDS ORDERED: CEFAZOLIN PMX 1GM/50ML 50 ML ONE (13:38)
[2019-01-31] MEDS ORDERED: CEFAZOLIN 1,000 MG ONE (13:38)
[2019-01-31] MEDS ORDERED: FENTANYL PF 100 MCG/2ML ONE (13:38)
[2019-01-31] MEDS ORDERED: VANCOMYCIN 500 MG ONE (13:53)
[2019-01-31] MEDS ORDERED: VANCOMYCIN PMX 1GM/200ML 200 ML ONE (13:53)
[2019-01-31] MEDS ORDERED: LIDOCAINE 1%, 20ML ONE (14:21)
[2019-01-31] MEDS ORDERED: HOLD MEDICATION MC PRN (15:00)
[2019-01-31] MEDS: NICOTINE 14MG/24 HR PATCH.TD24 TD SCH (15:10)
[2019-01-31] MEDS ORDERED: WARFARIN 5 MG TABLET PO-COUM ONE (18:00)
[2019-01-31 18:50] VITALS: BP 107/69
[2019-02-01 00:21] VITALS: BP 123/68
[2019-02-01] MEDS: KETOROLAC 30 MG/1 ML IV SCH (03:23)
[2019-02-01] MEDS: HYDROcodone/APAP 5/325 TABLET PO PRN (04:06)
[2019-02-01 06:04] LABS: INTERNATIONAL NORMALIZED RATIO 1.58 (0.93-1.1); PROTHROMBIN TIME 16.3 Seconds (9.6-11.5)
[2019-02-01 06:08] LABS: CALCIUM 8.4 mg/dL (8.5-10.1); CHLORIDE 102 mmol/L (98-107)
[2019-02-01 06:11] LABS: ANION GAP 6 mmol/L (5-15); CREATININE 0.59 mg/dL (0.55-1.02)
[2019-02-01] MEDS ORDERED: POTA20TA6 PO (07:42)
[2019-02-01] MEDS ORDERED: ASPI81TA45 PO (07:42)
[2019-02-01] MEDS ORDERED: HYDR-3237 PO (07:42)
[2019-02-01] MEDS ORDERED: WARF-36 PO (07:42)
[2019-02-01] MEDS ORDERED: FURO-92 PO (07:42)
[2019-02-01] MEDS: SODIUM CHLORIDE FLUSH 10ML SYR IVF SCH ×3 (07:51→08:06)
[2019-02-01] MEDS: FUROSEMIDE 20 MG/2 ML IV SCH (08:05)
[2019-02-01] MEDS: POTASSIUM CHLORIDE 20 MEQ TAB.ER.PRT PO SCH (08:05)
[2019-02-01] MEDS: DULOXETINE 20 MG CAPSULE.DR PO SCH (08:06)
[2019-02-01] MEDS: ASPIRIN 81 MG TABLET EC PO SCH (08:06)
[2019-02-01] MEDS: DOCUSATE 100 MG CAPSULE PO SCH (08:06)
[2019-02-01 08:07] VITALS: BP 136/88
[2019-02-01] MEDS ORDERED: WARFARIN 7.5 MG TABLET PO-COUM ONE (18:00)
== END 2019-02-01 10:10 | disposition home health service (06) | DRG 219 ==
LOC: 5SO 04:15 → CSU 09:15 → 5SO 01-27 18:50 → DCLOUNGE 02-01 09:45
PROVIDERS: ADMIT Thoracic Surgery (Cardiothoracic Vascular Surgery); ATTEND Thoracic Surgery (Cardiothoracic Vascular Surgery)
PROC: 02JA0ZZ Inspection of Heart, Open Approach (ICD-10-PCS; 2019-01-26)
PROC: B246ZZ4 Ultrasonography of Right and Left Heart, Transesophageal (ICD-10-PCS; 2019-01-26)
PROC: 5A1221Z Performance of Cardiac Output, Continuous (ICD-10-PCS; 2019-01-26)
PROC: 03HY32Z Insertion of Monitoring Device into Upper Artery, Percutaneous Approach (ICD-10-PCS; 2019-01-26)
PROC: 02HV33Z Insertion of Infusion Device into Superior Vena Cava, Percutaneous Approach (ICD-10-PCS; 2019-01-26)
PROC: B548ZZA Ultrasonography of Superior Vena Cava, Guidance (ICD-10-PCS; 2019-01-26)
PROC: 02RG08Z Replacement of Mitral Valve with Zooplastic Tissue, Open Approach (ICD-10-PCS; principal; 2019-01-26 08:00)
PROC: 0JH606Z Insertion of Pacemaker, Dual Chamber into Chest Subcutaneous Tissue and Fascia, Open Approach (ICD-10-PCS; 2019-01-31)
PROC: 02H63JZ Insertion of Pacemaker Lead into Right Atrium, Percutaneous Approach (ICD-10-PCS; 2019-01-31)
PROC: 02HK3JZ Insertion of Pacemaker Lead into Right Ventricle, Percutaneous Approach (ICD-10-PCS; 2019-01-31)
DX: I08.0 Rheumatic disorders of both mitral and aortic valves (principal); I46.9 Cardiac arrest, cause unspecified; I50.33 Acute on chronic diastolic (congestive) heart failure; J96.00 Acute respiratory failure, unspecified whether with hypoxia or hypercapnia; I44.2 Atrioventricular block, complete; J98.11 Atelectasis; B19.20 Unspecified viral hepatitis C without hepatic coma; F12.90 Cannabis use, unspecified, uncomplicated; F17.200 Nicotine dependence, unspecified, uncomplicated; F17.210 Nicotine dependence, cigarettes, uncomplicated; J44.9 Chronic obstructive pulmonary disease, unspecified; F41.9 Anxiety disorder, unspecified; I25.10 Atherosclerotic heart disease of native coronary artery without angina pectoris; I11.0 Hypertensive heart disease with heart failure; Z82.3 Family history of stroke; Z85.72 Personal history of non-Hodgkin lymphomas; Z90.710 Acquired absence of both cervix and uterus; Z92.21 Personal history of antineoplastic chemotherapy; Z92.3 Personal history of irradiation; Z87.440 Personal history of urinary (tract) infections; Z87.01 Personal history of pneumonia (recurrent)
CPT/HCPCS: 33208; 36415; 36600; J3490; J7613; S0017; 71045; 71046; 80048; 80053; 81003; 82040; 82330; 82800; 82803; 82810; 82947; 82962; 83036; 83735; 84132; 84295; 85014; 85018; 85025; 85049; 85347; 85610; 85730; 86850; 86900; 86923; 87081; 88305; 93005; 93312; 93321; 93325; 93880; 94003; 94640; 99156; 99157; C1779; C1785; C1892; G0378; J0171; J0690; J0697; J1644; J1815; J1885; J1940; J2250; J2405; J2704; J3010; J3370; J3475; J3480; P9045; P9047; C1751; C1760; C1762; J2270; J2370; J2930; J7050

== ENCOUNTER 2019-02-09 12:39 | Inpatient (IN) | payer MEDICAID ==
[~2019-02-09] VITALS: Ht 165.1 cm; Wt 84.6 kg
[~2019-02-09 12:39] MED LIST changes: +ASPI81TA45 PO; +FURO-92 PO; +HYDR-3237 PO; +POTA20TA6 PO; +WARF-36 PO
[2019-02-09 14:50] VITALS: BP 99/60
[2019-02-09 15:10] VITALS: BP 84/36
[2019-02-09 15:20] VITALS: BP 85/55
[2019-02-09] MEDS ORDERED: MIDAZOLAM 1 MG/ML, 2ML ONE (15:30)
[2019-02-09] MEDS ORDERED: FENTANYL PF 100 MCG/2ML ONE (15:31)
[2019-02-09] MEDS ORDERED: DEXTROSE 50%, 50ML SYRINGE IVPush STA ×2 (15:31→16:12)
[2019-02-09] MEDS ORDERED: LIDOCAINE 1%, 20ML ONE (15:31)
[2019-02-09] MEDS ORDERED: ASPIRIN 325 MG TABLET EC PO ONE (17:00)
[2019-02-09] MEDS ORDERED: TEMPLATE NON-FORMULARY MED. (Albuterol Sulfate (Proair Hfa) 0 PUFF) INH PRN (17:00)
[2019-02-09] MEDS ORDERED: DIPHENHYDRAMINE 25 MG CAPSULE PO PRN (17:00)
[2019-02-09] MEDS ORDERED: HYDROcodone/APAP 5/325 TABLET PO PRN (17:00)
[2019-02-09] MEDS: SODIUM CHLORIDE 0.9% 1,000 ML IV SCH ×2 (17:35→22:22)
[2019-02-09] MEDS ORDERED: LABETALOL 5MG/ML, 20ML IVPush PRN (18:00)
[2019-02-09] MEDS ORDERED: ONDANSETRON ODT 4 MG PO PRN (18:00)
[2019-02-09] MEDS ORDERED: BISACODYL 10 MG SUPP PR PRN (18:00)
[2019-02-09] MEDS ORDERED: morphine SULFATE 10 MG/ML, 1ML IVPush PRN (18:00)
[2019-02-09] MEDS ORDERED: ACETAMINOPHEN 325 MG TABLET PO PRN (18:00)
[2019-02-09] MEDS ORDERED: POLYETHYLENE GLYCOL 17 GM PACKET PO PRN (18:00)
[2019-02-09] MEDS ORDERED: ENALAPRILAT 1.25 MG/ML, 2ML IVPush PRN (18:00)
[2019-02-09] MEDS ORDERED: Albuterol Sulfate (Proair Hfa) INH PRN (18:00)
[2019-02-09] MEDS ORDERED: DOPAMINE/D5W PMX 250 ML IV PRN (19:00)
[2019-02-09] MEDS: SODIUM CHLORIDE FLUSH 10ML SYR IVF SCH (21:00)
[2019-02-09] MEDS ORDERED: METOCLOPRAMIDE 5 MG/ML, 2ML ONE (21:23)
[2019-02-09] MEDS ORDERED: METOCLOPRAMIDE 5 MG/ML, 2ML IVPush ONE (21:30)
[2019-02-09] MEDS: DULOXETINE 20 MG CAPSULE.DR PO SCH (21:32)
[2019-02-10] MEDS: OXYcodone IR 5MG TABLET PO PRN ×2 (00:30→22:29)
[2019-02-10 04:09] VITALS: BP 113/58
[2019-02-10 04:50] LABS: ALBUMIN 2.7 g/dL (3.4-5.0); ANION GAP 11 mmol/L (5-15); CALCIUM 7.4 mg/dL (8.5-10.1); CHLORIDE 101 mmol/L (98-107); CHOLESTEROL, TOTAL 137 mg/dL (140-239); TRIGLYCERIDES 80 mg/dL (50-200); VLDL CHOLESTEROL 16 mg/dL (0-25)
[2019-02-10 04:56] LABS: MEAN CORPUSCULAR HEMOGLOBIN 30.9 pg (27.0-34.8); MEAN CORPUSCULAR HGB CONC 34.1 g/dL (32.4-35.8); MEAN CORPUSCULAR VOLUME 90.7 fL (80-100); MEAN PLATELET VOLUME 7.4 fL (7.4-10.4); PLATELET COUNT 599 x10^3/uL (130-400); RED CELL DISTRIBUTION WIDTH 14.6 % (9.6-15.2)
[2019-02-10 05:09] LABS: % IRON SATURATION 43 % (20-55); ALANINE AMINOTRANSFERASE 3387 U/L (12-78); ALKALINE PHOSPHATASE 222 U/L (45-117); BILIRUBIN,TOTAL 0.6 mg/dL (0.2-1.0); CHOL/HDL RATIO 5.7; CREATININE 2.09 mg/dL (0.55-1.02); HDL CHOL % 18 % (28-40); HDL CHOLESTEROL (DIRECT) 24 mg/dL (40-60); IRON LEVEL 137 mcg/dL (50-170); LDL CHOLESTEROL,CALCULATED 97 mg/dL (54-169); TOTAL IRON BINDING CAPACITY 317 mcg/dL (250-450); TOTAL PROTEIN 5.8 g/dL (6.4-8.2)
[2019-02-10] MEDS ORDERED: ASPIRIN 325 MG TABLET EC PO SCH (06:00)
[2019-02-10 06:42] LABS: MD YES
[2019-02-10 06:44] LABS: BAND#(MANUAL) 0.85 x10^3/uL; BANDS%(MANUAL) 4 % (0-7); LYMPH#(MANUAL) 0.43 x10^3/uL (1-3.4); LYMPHS% (MANUAL) 2 % (22-44); MONOS#(MANUAL) 0.64 x10^3/uL (0.3-2.7); MONOS% (MANUAL) 3 % (2-9); SEG#(MANUAL) 19.38 x10^3/uL (1.8-6.8); SEGS% (MANUAL) 91 % (42-75)
[2019-02-10 06:45] LABS: <PLATELET ESTIMATE> INCREASED; <PLT MORPHOLOGY> NORMAL PLT MORPH; ANISOCYTOSIS 1+; POLYCHROMASIA 1+
[2019-02-10] MEDS: SODIUM CHLORIDE FLUSH 10ML SYR IVF SCH ×2 (09:00→20:16)
[2019-02-10] MEDS: FUROSEMIDE 40 MG TABLET PO SCH (09:00)
[2019-02-10] MEDS: DULOXETINE 20 MG CAPSULE.DR PO SCH ×2 (09:20→20:16)
[2019-02-10] MEDS: CLOPIDOGREL 75 MG TABLET PO SCH (09:20)
[2019-02-10] MEDS: SENNA/DOCUSATE TABLET PO SCH (09:21)
[2019-02-10] MEDS: SODIUM CHLORIDE 0.9% 1,000 ML IV SCH ×2 (09:30→18:39)
[2019-02-10] MEDS ORDERED: OXYcodone IR 5MG TABLET PO PRN (10:00)
[2019-02-10 13:32] VITALS: BP 113/72
[2019-02-10 21:50] VITALS: BP 109/71
[2019-02-11 00:42] VITALS: BP 113/67
[2019-02-11] MEDS: SODIUM CHLORIDE 0.9% 1,000 ML IV SCH ×2 (04:48→23:41)
[2019-02-11] MEDS: OXYcodone IR 5MG TABLET PO PRN ×5 (04:49→23:41)
[2019-02-11 05:59] LABS: CHLORIDE 105 mmol/L (98-107)
[2019-02-11 06:19] LABS: BASOPHILS # (AUTO) 0.12 x10^3/uL (0-0.1); BASOPHILS % (AUTO) 1 % (0-1); EOSINOPHILS # (AUTO) 0.31 x10^3/uL (0-0.4); EOSINOPHILS % (AUTO) 2 % (1-7); LYMPHOCYTES # (AUTO) 1.14 x10^3/uL (1-3.4); LYMPHOCYTES % (AUTO) 7 % (22-44); MD NO; MEAN CORPUSCULAR HEMOGLOBIN 30.5 pg (27.0-34.8); MEAN CORPUSCULAR HGB CONC 33.6 g/dL (32.4-35.8); MEAN CORPUSCULAR VOLUME 90.7 fL (80-100); MEAN PLATELET VOLUME 7.5 fL (7.4-10.4); MONOCYTES # (AUTO) 0.62 x10^3/uL (0.2-0.8); MONOCYTES % (AUTO) 4 % (2-9); NEUTROPHILS # (AUTO) 14.26 x10^3/uL (1.8-6.8); NEUTROPHILS % (AUTO) 87 % (42-75); PLATELET COUNT 501 x10^3/uL (130-400); RED BLOOD COUNT 2.97 x10^6/uL (3.82-5.3)
[2019-02-11 06:37] LABS: HEMOGLOBIN A1C 5.3 % (4.2-6.3)
[2019-02-11 07:04] LABS: ANION GAP 9 mmol/L (5-15); CALCIUM 7.7 mg/dL (8.5-10.1); CREATININE 0.85 mg/dL (0.55-1.02)
[2019-02-11 07:05] LABS: % IRON SATURATION 9 % (20-55); ALBUMIN 2.6 g/dL (3.4-5.0); ALKALINE PHOSPHATASE 224 U/L (45-117); BILIRUBIN,TOTAL 0.5 mg/dL (0.2-1.0); CREATINE KINASE, TOTAL 66 U/L (26-192); IRON LEVEL 26 mcg/dL (50-170); TOTAL IRON BINDING CAPACITY 299 mcg/dL (250-450); TOTAL PROTEIN 5.5 g/dL (6.4-8.2)
[2019-02-11 07:10] LABS: ALANINE AMINOTRANSFERASE 2316 U/L (12-78)
[2019-02-11 07:40] VITALS: BP 109/66
[2019-02-11] MEDS: SODIUM CHLORIDE FLUSH 10ML SYR IVF SCH ×2 (09:41→23:42)
[2019-02-11] MEDS: FUROSEMIDE 40 MG TABLET PO SCH (09:42)
[2019-02-11] MEDS: SENNA/DOCUSATE TABLET PO SCH (09:42)
[2019-02-11] MEDS: CLOPIDOGREL 75 MG TABLET PO SCH (09:42)
[2019-02-11] MEDS: DULOXETINE 20 MG CAPSULE.DR PO SCH ×2 (09:42→23:41)
[2019-02-11 11:46] VITALS: BP 131/73
[2019-02-11 13:58] VITALS: BP 116/68
[2019-02-11 21:07] VITALS: BP 128/71
[2019-02-12 02:22] VITALS: BP 131/80
[2019-02-12 05:21] LABS: BASOPHILS # (AUTO) 0.08 x10^3/uL (0-0.1); BASOPHILS % (AUTO) 1 % (0-1); EOSINOPHILS % (AUTO) 7 % (1-7); LYMPHOCYTES # (AUTO) 1.24 x10^3/uL (1-3.4); LYMPHOCYTES % (AUTO) 9 % (22-44); MD NO; MEAN CORPUSCULAR HGB CONC 34.4 g/dL (32.4-35.8); MEAN CORPUSCULAR VOLUME 90.2 fL (80-100); MEAN PLATELET VOLUME 7.4 fL (7.4-10.4); MONOCYTES # (AUTO) 1.13 x10^3/uL (0.2-0.8); MONOCYTES % (AUTO) 9 % (2-9); NEUTROPHILS # (AUTO) 9.86 x10^3/uL (1.8-6.8); NEUTROPHILS % (AUTO) 75 % (42-75); PLATELET COUNT 531 x10^3/uL (130-400); RED BLOOD COUNT 3.01 x10^6/uL (3.82-5.3); RED CELL DISTRIBUTION WIDTH 15.2 % (9.6-15.2)
[2019-02-12 05:22] LABS: CHLORIDE 103 mmol/L (98-107)
[2019-02-12 06:08] LABS: ALANINE AMINOTRANSFERASE 1547 U/L (12-78); ALBUMIN 2.6 g/dL (3.4-5.0); ALKALINE PHOSPHATASE 239 U/L (45-117); ANION GAP 8 mmol/L (5-15); BILIRUBIN,TOTAL 1.6 mg/dL (0.2-1.0); CALCIUM 7.8 mg/dL (8.5-10.1); CREATININE 0.55 mg/dL (0.55-1.02); TOTAL PROTEIN 5.8 g/dL (6.4-8.2)
[2019-02-12 08:01] VITALS: BP 133/73
[2019-02-12] MEDS: FUROSEMIDE 40 MG TABLET PO SCH (08:48)
[2019-02-12] MEDS: SENNA/DOCUSATE TABLET PO SCH (08:48)
[2019-02-12] MEDS: SODIUM CHLORIDE FLUSH 10ML SYR IVF SCH ×2 (08:49→20:41)
[2019-02-12] MEDS: DULOXETINE 20 MG CAPSULE.DR PO SCH ×2 (08:49→20:40)
[2019-02-12] MEDS: CLOPIDOGREL 75 MG TABLET PO SCH (08:49)
[2019-02-12] MEDS ORDERED: KETOROLAC 30 MG/1 ML IVPush ONE (11:30)
[2019-02-12] MEDS: SODIUM CHLORIDE 0.9% 1,000 ML IV SCH (11:50)
[2019-02-12 13:24] VITALS: BP 124/76
[2019-02-12 14:47] LABS: INTERNATIONAL NORMALIZED RATIO 2.15 (0.93-1.1); PROTHROMBIN TIME 21.9 Seconds (9.6-11.5)
[2019-02-12] MEDS: OXYcodone IR 5MG TABLET PO PRN (16:33)
[2019-02-12] MEDS ORDERED: WARFARIN 7.5 MG TABLET PO-COUM ONE (18:00)
[2019-02-12 18:39] VITALS: BP 109/69
[2019-02-12 18:40] VITALS: BP 128/75
[2019-02-13 00:34] VITALS: BP 145/87
[2019-02-13] MEDS: OXYcodone IR 5MG TABLET PO PRN ×3 (01:13→14:28)
[2019-02-13 01:15] VITALS: BP 158/88
[2019-02-13 04:29] LABS: INTERNATIONAL NORMALIZED RATIO 1.94 (0.93-1.1); PROTHROMBIN TIME 19.9 Seconds (9.6-11.5)
[2019-02-13 04:32] LABS: BASOPHILS % (AUTO) 1 % (0-1); EOSINOPHILS % (AUTO) 11 % (1-7); LYMPHOCYTES # (AUTO) 1.12 x10^3/uL (1-3.4); LYMPHOCYTES % (AUTO) 9 % (22-44); MD NO; MEAN CORPUSCULAR HEMOGLOBIN 30.1 pg (27.0-34.8); MEAN CORPUSCULAR HGB CONC 33.4 g/dL (32.4-35.8); MEAN CORPUSCULAR VOLUME 90.2 fL (80-100); MEAN PLATELET VOLUME 7.4 fL (7.4-10.4); MONOCYTES # (AUTO) 1.03 x10^3/uL (0.2-0.8); MONOCYTES % (AUTO) 9 % (2-9); NEUTROPHILS # (AUTO) 8.43 x10^3/uL (1.8-6.8); NEUTROPHILS % (AUTO) 70 % (42-75); PLATELET COUNT 498 x10^3/uL (130-400); RED CELL DISTRIBUTION WIDTH 15.2 % (9.6-15.2)
[2019-02-13 04:53] LABS: CHLORIDE 103 mmol/L (98-107)
[2019-02-13 05:10] LABS: ALANINE AMINOTRANSFERASE 1102 U/L (12-78); ALBUMIN 2.6 g/dL (3.4-5.0); ALKALINE PHOSPHATASE 237 U/L (45-117); ANION GAP 5 mmol/L (5-15); BILIRUBIN,TOTAL 0.8 mg/dL (0.2-1.0); CALCIUM 8.1 mg/dL (8.5-10.1); CREATININE 0.52 mg/dL (0.55-1.02); TOTAL PROTEIN 5.7 g/dL (6.4-8.2)
[2019-02-13 07:30] VITALS: BP 156/91
[2019-02-13] MEDS ORDERED: METOPROLOL TARTRATE 25 MG TABLET PO SCH (08:00)
[2019-02-13] MEDS: CLOPIDOGREL 75 MG TABLET PO SCH (08:12)
[2019-02-13] MEDS: FUROSEMIDE 40 MG TABLET PO SCH (08:12)
[2019-02-13] MEDS: SENNA/DOCUSATE TABLET PO SCH (08:12)
[2019-02-13] MEDS: DULOXETINE 20 MG CAPSULE.DR PO SCH (08:16)
[2019-02-13] MEDS: SODIUM CHLORIDE FLUSH 10ML SYR IVF SCH (08:16)
[2019-02-13 12:10] VITALS: BP 123/74
[2019-02-13] MEDS ORDERED: METO25TA35 PO (13:31)
[2019-02-13] MEDS ORDERED: CLOP75TA PO (13:31)
[2019-02-13] MEDS ORDERED: WARFARIN 10 MG TABLET PO-COUM ONE (18:00)
== END 2019-02-13 15:05 | disposition home or self-care (01) | DRG 314 ==
LOC: 5SO 14:44 → ICU 16:43 → 5SO 02-10 14:12
PROVIDERS: ADMIT Thoracic Surgery (Cardiothoracic Vascular Surgery); ATTEND Thoracic Surgery (Cardiothoracic Vascular Surgery)
PROC: 0W9D3ZZ Drainage of Pericardial Cavity, Percutaneous Approach (ICD-10-PCS; principal; 2019-02-10)
DX: I31.3 Pericardial effusion (noninflammatory) (principal); K72.00 Acute and subacute hepatic failure without coma; I50.32 Chronic diastolic (congestive) heart failure; D68.69 Other thrombophilia; N17.9 Acute kidney failure, unspecified; E87.1 Hypo-osmolality and hyponatremia; C81.90 Hodgkin lymphoma, unspecified, unspecified site; I31.4 Cardiac tamponade; I11.0 Hypertensive heart disease with heart failure; B18.2 Chronic viral hepatitis C; D63.8 Anemia in other chronic diseases classified elsewhere; K59.00 Constipation, unspecified; D18.03 Hemangioma of intra-abdominal structures; D72.829 Elevated white blood cell count, unspecified; I08.0 Rheumatic disorders of both mitral and aortic valves; J45.909 Unspecified asthma, uncomplicated; Z72.0 Tobacco use; Z95.2 Presence of prosthetic heart valve; Z95.0 Presence of cardiac pacemaker; Z92.3 Personal history of irradiation; Z92.21 Personal history of antineoplastic chemotherapy; Z79.01 Long term (current) use of anticoagulants; Z82.3 Family history of stroke; Z82.49 Family history of ischemic heart disease and other diseases of the circulatory system; Z87.410 Personal history of cervical dysplasia; Z90.710 Acquired absence of both cervix and uterus
CPT/HCPCS: 33010; 36415; J3490; 71045; 76700; 76930; 80053; 80061; 80074; 82550; 82962; 83036; 83540; 83550; 83735; 84443; 85025; 85610; 87070; 87081; 87205; 87521; 88112; 88305; 89051; 93005; 93308; 93321; 93325; C1729; G0378; J1265; J1885; J2250; J3010; J2765; J7030; Q0163

== ENCOUNTER 2019-02-14 21:41 | Inpatient (IN) | payer MEDICAID ==
[~2019-02-14] VITALS: Ht 166.4 cm; Wt 75.9 kg
[~2019-02-14 21:41] MED LIST changes: +CLOP75TA PO; +METO25TA35 PO
--- NOTE | 2019-02-14 22:07 | NUR ---
STERNAL CHEST PAIN. STARTED January WHEN HAD OPEN HEART SX. per triage note
[2019-02-14] MEDS ORDERED: OXYcodone IR 5MG TABLET PO ONE (22:30)
[2019-02-14 23:24] LABS: BASOPHILS # (AUTO) 0.04 x10^3/uL (0-0.1); BASOPHILS % (AUTO) 0 % (0-1); EOSINOPHILS # (AUTO) 1.35 x10^3/uL (0-0.4); EOSINOPHILS % (AUTO) 11 % (1-7); LYMPHOCYTES # (AUTO) 1.12 x10^3/uL (1-3.4); LYMPHOCYTES % (AUTO) 9 % (22-44); MD NO; MEAN CORPUSCULAR HGB CONC 33.4 g/dL (32.4-35.8); MEAN CORPUSCULAR VOLUME 89.9 fL (80-100); MEAN PLATELET VOLUME 7.3 fL (7.4-10.4); MONOCYTES # (AUTO) 1.13 x10^3/uL (0.2-0.8); MONOCYTES % (AUTO) 9 % (2-9); NEUTROPHILS # (AUTO) 8.38 x10^3/uL (1.8-6.8); NEUTROPHILS % (AUTO) 70 % (42-75); PLATELET COUNT 540 x10^3/uL (130-400); RED BLOOD COUNT 3.32 x10^6/uL (3.82-5.3); RED CELL DISTRIBUTION WIDTH 15.4 % (9.6-15.2)
[2019-02-14 23:36] LABS: ANION GAP 6 mmol/L (5-15); CALCIUM 8.7 mg/dL (8.5-10.1); CHLORIDE 106 mmol/L (98-107); CREATININE 0.58 mg/dL (0.55-1.02); INTERNATIONAL NORMALIZED RATIO 3.72 (0.93-1.1); PROTHROMBIN TIME 37.1 Seconds (9.6-11.5)
[2019-02-14] MEDS ORDERED: OXYcodone IR 5MG TABLET ONE (23:47)
[2019-02-15] MEDS ORDERED: DIPHENHYDRAMINE 50 MG CAPSULE PO PRN
[2019-02-15] MEDS ORDERED: LABETALOL 5 MG/ML SYRINGE IVPush PRN
[2019-02-15] MEDS ORDERED: BISACODYL 10 MG SUPP PR PRN
[2019-02-15] MEDS ORDERED: LIDODERM 5% PATCH TD PRN
[2019-02-15] MEDS ORDERED: ONDANSETRON 2MG/ML, 2ML IVPush PRN
[2019-02-15] MEDS ORDERED: ALBUTEROL SULFATE 2.5 MG/3 ML NPPB PRN (00:30)
[2019-02-15 01:14] VITALS: BP 171/89
[2019-02-15 05:08] VITALS: BP 163/104
[2019-02-15 05:11] LABS: BASOPHILS # (AUTO) 0.05 x10^3/uL (0-0.1); BASOPHILS % (AUTO) 0 % (0-1); EOSINOPHILS # (AUTO) 1.42 x10^3/uL (0-0.4); EOSINOPHILS % (AUTO) 13 % (1-7); LYMPHOCYTES # (AUTO) 1.34 x10^3/uL (1-3.4); LYMPHOCYTES % (AUTO) 12 % (22-44); MD NO; MEAN CORPUSCULAR HEMOGLOBIN 30.3 pg (27.0-34.8); MEAN CORPUSCULAR HGB CONC 33.5 g/dL (32.4-35.8); MEAN CORPUSCULAR VOLUME 90.3 fL (80-100); MEAN PLATELET VOLUME 7.4 fL (7.4-10.4); MONOCYTES # (AUTO) 1.24 x10^3/uL (0.2-0.8); MONOCYTES % (AUTO) 11 % (2-9); NEUTROPHILS # (AUTO) 6.89 x10^3/uL (1.8-6.8); NEUTROPHILS % (AUTO) 63 % (42-75); PLATELET COUNT 494 x10^3/uL (130-400); RED BLOOD COUNT 3.29 x10^6/uL (3.82-5.3); RED CELL DISTRIBUTION WIDTH 15.2 % (9.6-15.2)
[2019-02-15 05:21] LABS: ANION GAP 4 mmol/L (5-15); CALCIUM 8.7 mg/dL (8.5-10.1); CHLORIDE 104 mmol/L (98-107); CREATININE 0.62 mg/dL (0.55-1.02)
[2019-02-15] MEDS ORDERED: METOPROLOL TARTRATE 25 MG TABLET PO SCH (06:00)
[2019-02-15 07:48] VITALS: BP 160/92
[2019-02-15] MEDS ORDERED: HOLD COUMADIN MC PRN (08:00)
[2019-02-15] MEDS ORDERED: POTASSIUM CHLORIDE 20 MEQ TAB.ER.PRT PO SCH (08:00)
[2019-02-15] MEDS: OXYcodone IR 5MG TABLET PO PRN ×2 (08:48→12:54)
[2019-02-15] MEDS ORDERED: DULOXETINE 20 MG CAPSULE.DR PO SCH (09:00)
[2019-02-15] MEDS ORDERED: WARFARIN BIOPROSTHETIC VALVE PROTOCOL 2-3 XX SCH (09:00)
[2019-02-15] MEDS ORDERED: FUROSEMIDE 40 MG TABLET PO SCH (09:00)
[2019-02-15] MEDS ORDERED: CLOPIDOGREL 75 MG TABLET PO SCH (09:00)
[2019-02-15] MEDS ORDERED: ASPIRIN 81 MG TABLET EC PO SCH (09:00)
[2019-02-15 11:21] LABS: ALBUMIN 2.7 g/dL (3.4-5.0)
[2019-02-15 11:24] LABS: BILIRUBIN, DIRECT 0.1 mg/dL (0.1-0.2); BILIRUBIN,INDIRECT 0.5 mg/dL (0.0-2.0); BILIRUBIN,TOTAL 0.6 mg/dL (0.2-1.0); TOTAL PROTEIN 6.1 g/dL (6.4-8.2)
[2019-02-15 14:20] VITALS: BP 136/78
[2019-02-15 16:00] VITALS: BP 157/87
[2019-02-15] MEDS ORDERED: OXYC5TAB3 PO (16:15)
== END 2019-02-15 17:10 | disposition home health service (06) | DRG 313 ==
LOC: ED 22:27 → EDIP 23:10 → 4NOR 02-15 01:09 → DCLOUNGE 02-15 16:54
PROVIDERS: ADMIT Internal Medicine; ATTEND Internal Medicine
DX: R07.9 Chest pain, unspecified (principal); D68.69 Other thrombophilia; I31.3 Pericardial effusion (noninflammatory); I50.32 Chronic diastolic (congestive) heart failure; I44.1 Atrioventricular block, second degree; B18.2 Chronic viral hepatitis C; F17.200 Nicotine dependence, unspecified, uncomplicated; I05.0 Rheumatic mitral stenosis; I11.0 Hypertensive heart disease with heart failure; J45.909 Unspecified asthma, uncomplicated; N19 Unspecified kidney failure; Z82.3 Family history of stroke; Z82.49 Family history of ischemic heart disease and other diseases of the circulatory system; Z85.71 Personal history of Hodgkin lymphoma; Z87.410 Personal history of cervical dysplasia; Z90.710 Acquired absence of both cervix and uterus; Z92.21 Personal history of antineoplastic chemotherapy; Z92.3 Personal history of irradiation; Z95.0 Presence of cardiac pacemaker; Z95.2 Presence of prosthetic heart valve
CPT/HCPCS: 36415; J7613; 80048; 80076; 85025; 85610; 85730; 93005; 94640; 99285

== ENCOUNTER → 2019-04-11 | Outpatient (CLI) | payer MEDICAID ==
[~2019-04-11] MED LIST changes: +OXYC5TAB3 PO
== END | disposition home or self-care (01) ==
LOC: CFH 12:47
PROVIDERS: ATTEND Registered Nurse
DX: I08.2 Rheumatic disorders of both aortic and tricuspid valves (principal)
CPT/HCPCS: 93306

== ENCOUNTER 2019-04-25 09:57 | Day surgery (SDC) | payer MEDICAID ==
[~2019-04-25] VITALS: Ht 165.1 cm; Wt 75.5 kg
[2019-04-25] MEDS ORDERED: PLEASE ENTER HEIGHT AND WEIGHT MC SCH (11:00)
[2019-04-25] MEDS ORDERED: SODIUM CHLORIDE 0.9% 1,000 ML IV SCH (11:00)
[2019-04-25] MEDS ORDERED: METO25TA35 PO (11:03)
[2019-04-25] MEDS ORDERED: LOSA50TA14 PO (11:03)
[2019-04-25 11:04] VITALS: BP 155/96
[2019-04-25] MEDS ORDERED: PROPOFOL 10 MG/ML, 20ML ONE (12:02)
[2019-04-25] MEDS ORDERED: ALBUTEROL SULFATE 2.5 MG/3 ML ONE (12:13)
[2019-04-25] MEDS ORDERED: ALBUTEROL/IPRATROPIUM 2.5MG/0.5MG, 3 ML NPPB PRN (12:30)
== END 2019-04-25 13:52 | disposition home or self-care (01) ==
LOC: CACL 09:57
PROVIDERS: ATTEND Internal Medicine Cardiovascular Disease
DX: I08.1 Rheumatic disorders of both mitral and tricuspid valves (principal); F17.200 Nicotine dependence, unspecified, uncomplicated; I10 Essential (primary) hypertension; J44.9 Chronic obstructive pulmonary disease, unspecified; Z79.82 Long term (current) use of aspirin; Z95.0 Presence of cardiac pacemaker; Z95.2 Presence of prosthetic heart valve
CPT/HCPCS: 93312; 93321; 94640; J2704

== ENCOUNTER → 2019-12-15 | Outpatient (CLI) | payer MEDICAID ==
[~2019-12-15] MED LIST changes: -CETI10TA24 PO; +CETI10TA26 PO
== END | disposition home or self-care (01) ==
LOC: RAD 11:31
PROVIDERS: ATTEND Nurse Practitioner Family
DX: M51.36 Other intervertebral disc degeneration, lumbar region (principal); M48.061 Spinal stenosis, lumbar region without neurogenic claudication; E88.2 Lipomatosis, not elsewhere classified; M54.31 Sciatica, right side
CPT/HCPCS: 72148

== ENCOUNTER → 2020-07-12 | Outpatient (CLI) | payer MEDICAID ==
[~2020-07-12] MED LIST changes: -CETI10TA26 PO; +CETI10TA76 PO
== END | disposition home or self-care (01) ==
LOC: CFH 10:15
PROVIDERS: ATTEND Internal Medicine Cardiovascular Disease
DX: I08.8 Other rheumatic multiple valve diseases (principal); I10 Essential (primary) hypertension; E78.5 Hyperlipidemia, unspecified
CPT/HCPCS: 93306

== ENCOUNTER 2021-07-15 07:46 | Outpatient (CLI) | payer MEDICAID ==
[~2021-07-15 07:46] MED LIST changes: -OXYC5TAB3 PO; +OXYC5TAB98 PO; +POTA-143 PO; -POTA20TA6 PO
== END 2021-07-15 23:59 | disposition home or self-care (01) ==
LOC: CFH 07:46
PROVIDERS: ATTEND Registered Nurse
DX: I08.8 Other rheumatic multiple valve diseases (principal); R06.02 Shortness of breath; R60.9 Edema, unspecified
CPT/HCPCS: 93306